=== PATIENT | male | born 1955 | race Caucasian/White ===

== ENCOUNTER → 2019-06-07 13:26 | Outpatient (CLI) | payer OTHER, SELFPAY ==
--- NOTE | 2019-06-07 13:28 | DI.RAD.S_ITS ---
PROCEDURE: XR HAND LT MIN 3V INDICATIONS: L hand pain TECHNIQUE: 3 views of the hand(s) acquired. COMPARISON: None. FINDINGS: Bones: A small bony avulsion is present at the distal aspect of the middle phalanx of the left third digit. No other fracture or dislocation. Soft tissues: No suspicious soft tissue calcifications. IMPRESSION: Findings suspicious for small avulsion fracture of the distal middle phalanx of the left third digit. Please correlate with trauma history. Dictated by: Ping Connor M.D. on 06/07/2019 at 16:12 Approved by: Ping Connor M.D. on 06/07/2019 at 16:13
== END ==
PROVIDERS: PCP Student in an Organized Health Care Education/Training Program; Visit Provider Physician Assistant
DX: M79.642 Pain in left hand (principal)
CPT/HCPCS: 73130